=== PATIENT | female | born 1980 | race Caucasian/White ===

== ENCOUNTER 2019-03-11 13:55 | Emergency (ER) | payer MEDICAID ==
[~2019-03-11] VITALS: Ht 157.5 cm; Wt 70.3 kg
[2019-03-11 13:55] VITALS: BP_SYST 122
[2019-03-11] MEDS ORDERED: MECLIZINE HCL 25 MG TABLET (ANITVERT) PO ONE (14:30)
[2019-03-11] MEDS ORDERED: NACL 0.9% 1,000 ML IV ONE (14:30)
[2019-03-11 16:16] VITALS: BP_SYST 125
== END 2019-03-11 16:16 | disposition home or self-care (01) ==
LOC: SED 13:55
DX: R42 Dizziness and giddiness (principal); R53.83 Other fatigue; M54.5 Low back pain; E11.9 Type 2 diabetes mellitus without complications; I10 Essential (primary) hypertension; F41.9 Anxiety disorder, unspecified; Z85.41 Personal history of malignant neoplasm of cervix uteri
CPT/HCPCS: 70450; 81025; 96360; 99284; J7030; J8597

== ENCOUNTER 2019-10-04 18:05 | Emergency (ER) | payer MEDICAID ==
[~2019-10-04] VITALS: Ht 157.5 cm; Wt 72.6 kg
[2019-10-04 18:08] VITALS: BP_SYST 115
[2019-10-04 20:07] LABS: BASOPHILS % (AUTO) 0.6 % (0.0-2.0); EOSINOPHILS # (AUTO) 0.1 K/uL (0.0-0.4); EOSINOPHILS % (AUTO) 1.5 % (0.0-4.0); HEMATOCRIT 39.5 % (36-48); HEMOGLOBIN 13.2 g/dL (12.0-16.0); LYMPHOCYTES # (AUTO) 3.6 K/uL (1.0-5.5); LYMPHOCYTES % (AUTO) 39.9 % (20.5-51.5); MEAN CORPUSCULAR HEMOGLOBIN 30 pg (27-31); MEAN CORPUSCULAR HGB CONC 34 % (32-36); MEAN CORPUSCULAR VOLUME 90 fL (79.0-98.0); MONOCYTES # (AUTO) 0.6 K/uL (0.0-1.0); MONOCYTES % (AUTO) 6.4 % (1.7-9.3); NEUTROPHILS # (AUTO) 4.6 K/uL (1.8-7.7); NEUTROPHILS % (AUTO) 51.6 % (40.0-70.0); PLATELET COUNT (AUTO) 314 K/uL (130-430); RED BLOOD CELL COUNT(AUTO) 4.38 MIL/uL (4.2-6.2); RED CELL DISTRIBUTION WIDTH 13.9 % (9.0-15.0); WHITE BLOOD COUNT (AUTO) 8.9 K/uL (4.8-10.8)
[2019-10-04 20:19] LABS: CALCIUM 8.4 mg/dL (8.4-11.0); CREATININE 0.8 mg/dL (0.55-1.30); POTASSIUM 3.6 mmol/L (3.5-5.1)
[2019-10-04 20:20] LABS: INR 0.9 (0.8-1.2); PROTHROMBIN TIME 9.4 SECS (9.5-12.5)
[2019-10-04 20:23] LABS: ALBUMIN 3.9 g/dL (3.4-4.8); TOTAL BILIRUBIN 0.3 mg/dL (0.0-1.0)
--- NOTE | 2019-10-04 21:42 | NUR ---
Patient to ER bed 02 to gown for evaluation. Side rails up. Report given to MARJAN Caban
--- NOTE | 2019-10-04 22:50 | NUR ---
Pt brought in by self. Pt awake, alert, oriented x4. Pt states that she has chief complaint of chest pressure, denying pain. Pt states that she has has generalized weakness and periorbital numbeness lasting approximately 1 week. Pt states that she has been busy and didnt have time to come in for evaluation because she didnt want to have to wait for very long. Pt denies syncope, vomiting, shortness of breath, dizziness. Pt denies any other medical complaint at this time. Pt VSS
--- NOTE | 2019-10-04 22:54 | NUR ---
ER at bedside examining patient.
[2019-10-04 23:08] LABS: BILIRUBIN,URINE NEGATIVE (NEGATIVE); CLARITY/URINE CLEAR (CLEAR); COLOR,URINE YELLOW (YELLOW); GLUCOSE,URINE 3+ (NEGATIVE); KETONES,URINE NEGATIVE (NEGATIVE); LEUKOCYTE ESTERASE ,URINE NEGATIVE (NEGATIVE); NITRITE, URINE NEGATIVE (NEGATIVE); PH,URINE 5.5 (5.0-8.0); PROTEIN URINE NEGATIVE (NEGATIVE); UROBILINOGEN,URINE 0.2 (0.2-1.0)
[2019-10-04 23:10] LABS: BLOOD, URINE TRACE (NEGATIVE)
--- NOTE | 2019-10-04 23:11 | NUR ---
Pt resting in ED bed comfortably with son Bedside. No acute distress. Pt using cellphone
[2019-10-04 23:21] LABS: BACTERIA,URINE FEW /HPF (None Seen)
[2019-10-04] MEDS ORDERED: NITROGLYCERIN 0.4 MG TAB.SUBL SL ONE (23:30)
[2019-10-05] MEDS ORDERED: LORazepam 1 MG TABLET PO ONE (00:30)
--- NOTE | 2019-10-05 01:15 | NUR ---
Pt resting in ed bed comfortably. No distress noted at this time
[2019-10-05 03:00] VITALS: BP_SYST 127
--- NOTE | 2019-10-05 03:00 | NUR ---
Patient given written and verbal discharge instructions and verbalizes understanding. ER MD discussed with patient the results and treatment provided. Patient in stable condition. ID arm band removed. IV catheter removed intact and dressing applied, no active bleeding. Rx of Ativan given. Patient educated on pain management and to follow up with PMD. Pain Scale 0/10. Opportunity for questions provided and answered. Medication side effect fact sheet provided.
== END 2019-10-05 03:00 | disposition home or self-care (01) ==
LOC: SED 18:05
DX: F41.9 Anxiety disorder, unspecified (principal); R07.89 Other chest pain; R20.2 Paresthesia of skin; E11.9 Type 2 diabetes mellitus without complications; Z85.41 Personal history of malignant neoplasm of cervix uteri
CPT/HCPCS: 36415; 71045; 80053; 81000-TC; 81025; 82550-TC; 83880; 84443-TC; 84484; 85025; 85610-TC; 93005; 99284

== ENCOUNTER 2019-10-07 16:22 | Emergency (ER) | payer MEDICAID ==
[~2019-10-07] VITALS: Ht 157.5 cm; Wt 72.6 kg
[2019-10-07 16:55] VITALS: BP_SYST 127
--- NOTE | 2019-10-07 16:58 | NUR ---
BS 127
--- NOTE | 2019-10-07 18:39 | NUR ---
Patient to ER bed 7 to gown for evaluation. Side rails up. Report given to MARJAN Sinha
[2019-10-07] MEDS ORDERED: PROCHLORPERAZINE EDISYLATE 10 MG/2 ML VIAL IVP ONE (18:45)
[2019-10-07] MEDS ORDERED: NACL 0.9% 1,000 ML IV ONE (18:45)
[2019-10-07] MEDS ORDERED: KETOROLAC TROMETHAMINE 30 MG VIAL IVP ONE (18:45)
--- NOTE | 2019-10-07 18:45 | NUR ---
pt arrives from home w/ c/o worsening POLLARD x 10 days. Pt does have a hx of migraine and DM. integration lead placed.
--- NOTE | 2019-10-07 18:45 | NUR ---
DR OWEN AT BEDSIDE
--- NOTE | 2019-10-07 18:50 | NUR ---
# 20 gauge angiocath placed to LAC. Use of asceptic technique. Opsite placed over site. Blood return noted. Blood for lab drawn from site. Flushed with 10 cc of normal saline. No evidence of infiltration noted. Patient tolerated well.
--- NOTE | 2019-10-07 19:00 | NUR ---
medicated the pt w/ tORADOL AND cOMPAZINE PER md ORDER
--- NOTE | 2019-10-07 19:18 | NUR ---
report given to Han Tubbs. pt in stabel condition
[2019-10-07] MEDS ORDERED: MORPHINE 2 MG/ML INJ. SYRINGE IVP ONE (19:30)
[2019-10-07] MEDS ORDERED: LORazepam 2 MG/ML VIAL IVP ONE (19:30)
--- NOTE | 2019-10-07 20:38 | NUR ---
Patient given written and verbal discharge instructions and verbalizes understanding. ER MD discussed with patient the results and treatment provided. Patient in stable condition. ID arm band removed. IV catheter removed intact and dressing applied, no active bleeding. Rx of Imitrex,naproxen given. Patient educated on pain management and to follow up with PMD. Pain Scale 0/10. Opportunity for questions provided and answered. Medication side effect fact sheet provided.
[2019-10-07 20:40] VITALS: BP_SYST 125
== END 2019-10-07 20:38 | disposition home or self-care (01) ==
LOC: SED 16:22
DX: G43.909 Migraine, unspecified, not intractable, without status migrainosus (principal); F41.9 Anxiety disorder, unspecified; E11.9 Type 2 diabetes mellitus without complications; Z85.41 Personal history of malignant neoplasm of cervix uteri
CPT/HCPCS: 96361; 96374; 96375; 99283; J0780; J1885; J2060; J2270; J7030

== ENCOUNTER 2024-06-22 16:29 | Emergency (ER) | payer MEDICAID ==
[~2024-06-22] VITALS: Ht 157.5 cm; Wt 68.0 kg
[2024-06-22 16:30] VITALS: BP_SYST 129; PULSE 92; RESP 18; TEMP 98.1; O2SAT 98
== END 2024-06-22 18:17 | disposition left against medical advice (07) ==
LOC: SED 16:29
DX: R51.9 Headache, unspecified (principal); M79.10 Myalgia, unspecified site; Z53.21 Procedure and treatment not carried out due to patient leaving prior to being seen by health care provider